=== PATIENT | female | born 1950 | race Caucasian/White ===

== ENCOUNTER → 2017-08-31 20:22 | Outpatient (CLI) | payer MEDICARE, BC | END | disposition home or self-care (01) | LOC: D.MAMMO 08-28 15:45 | DX: Z12.31 Encounter for screening mammogram for malignant neoplasm of breast (principal) ==

== ENCOUNTER 2017-10-30 08:25 | Day surgery (SDC) | payer MEDICARE, BC ==
[2017-10-29 14:16] LABS: BASOPHILS 0.4 % (0-2); EOSINOPHILS 1.6 % (0-7); HEMATOCRIT 36.8 % (36.0-48.0); HEMOGLOBIN 11.8 g/dL (12-16); IMMATURE GRANULOCYTES 0.1 % (0-5); LYMPHOCYTES 45.7 % (15-50); MCH 29.4 pg (26.0-34.0); MCHC 32.1 g/dL (31.0-37.0); MCV 91.8 fL (80.0-100.0); MEAN PLATELET VOLUME 8.5 fL (7.4-10.4); MONOCYTES 7.1 % (2-11); NEUTROPHILS 45.1 % (40-80); PLATELET COUNT 310 10x3/uL (130-400); RBC 4.01 10x6/uL (4.00-5.40); RDW 13.3 % (11.5-14.5); WBC 7.3 10x3/uL (4.8-10.8)
[2017-10-29 14:25] LABS: ANION GAP 10.5 mmol/L (8-16); CALCIUM 10.2 mg/dL (8.5-10.1); CARBON DIOXIDE 27.3 mmol/L (21.0-32.0); POTASSIUM - SERUM 3.8 mmol/L (3.5-5.1)
[~2017-10-30] VITALS: Ht 157.5 cm; Wt 61.2 kg
--- NOTE | ~2017-10-30 | OP ---
PATIENT NAME: XENA BAIRD MEDICAL RECORD: [id number] :46 LOCATION:D.OPS ADMISSION DATE: SURGEON: MIKE REDDY MD DATE OF OPERATION: 10/30/2017 PREOPERATIVE DIAGNOSES: 1. Umbilical hernia. 2. Hypertension. 3. Hypercholesterolemia. 4. Arthritis. POSTOPERATIVE DIAGNOSES: 1. Umbilical hernia. 2. Hypertension. 3. Hypercholesterolemia. 4. Arthritis. PROCEDURE: Umbilical hernia repair with 6.4 cm Proceed mesh. SURGEON: Mike Reddy MD REPORT OF PROCEDURE: The patient's abdomen was prepped and draped in sterile fashion. A semicircular incision was made on the superior aspect of the umbilicus. Electrocautery was used to dissect through the subcutaneous tissues. We elevated the umbilical stalk. The patient had a large hernia defect and as we freed this up, we freed up the surrounding tissue overlying the fascia in all directions. Upon doing this, we noted that there were multiple hernia defects present with small fascial bridges between them. These fascial bridges were opened up leaving one large hernia defect. This measured about 3.5 cm in greatest diameter. We freed up the undersurface of the fascia and inserted a 6.4 cm Proceed mesh and sutured it down on all 4 sides using interrupted 0 Prolenes. We then irrigated out the wound with normal saline and closed the fascia over top of the mesh using a running 0 Vicryl. The umbilicus was tacked down with a single interrupted 3-0 Vicryl. The subcutaneous tissues were reapproximated with interrupted 3-0 Vicryl and the skin was closed with running subcutaneous 5-0 Monocryl. We infused a total of 10 mL of 0.25% Marcaine plain into the surrounding tissues and the wound was dressed appropriately. COMPLICATIONS: None. CONDITION: Stable. ANESTHESIA: General endotracheal and local. BLOOD LOSS: Minimal. 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 10/30/17 [place] [address]
[~2017-10-30 08:25] MED LIST: ALTACE2.5 MG PO; ELAVIL25 MG PO; LEVOTHYROXINE50 MCG PO; LYRICA100 MG PO; NEXIUM20 MG PO; PRAVACHOL80 MG PO; SOMA350 MG PO; ZOLOFT50 MG PO
[2017-10-30 08:52] VITALS: BP 142/77; Ht 157.5 cm; Wt 61.2 kg
[2017-10-30] MEDS ORDERED: HYDROCODONE-APA1 TAB PO (11:41)
== END 2017-10-30 14:00 | disposition home or self-care (01) ==
LOC: D.OPS 08:25 → D.PAN 10:45 → D.OPS 14:00
PROVIDERS: Surgery
DX: K42.9 Umbilical hernia without obstruction or gangrene (principal); I10 Essential (primary) hypertension; E78.00 Pure hypercholesterolemia, unspecified; M19.90 Unspecified osteoarthritis, unspecified site; Z01.812 Encounter for preprocedural laboratory examination

== ENCOUNTER → 2017-12-19 10:52 | Outpatient (CLI) | payer MEDICARE, BC ==
[2017-10-30 08:52] VITALS: BMI 24.7
[~2017-12-19 10:52] MED LIST changes: +HYDROCODONE-APA1 TAB PO
== END | disposition home or self-care (01) ==
LOC: D.CT 10:52
DX: R10.2 Pelvic and perineal pain (principal)

== ENCOUNTER 2019-07-05 17:52 | Emergency (ER) | payer MEDICARE, BC ==
[2017-10-30 08:52] VITALS: Ht 157.5 cm
[2019-07-05] MEDS ORDERED: ULTRAM50 MG PO (20:02)
[2019-07-05] MEDS ORDERED: MEDROL DOSE PACK4 MG PO (20:02)
[2019-07-05 20:16] VITALS: BP 122/81
== END 2019-07-05 20:16 | disposition home or self-care (01) ==
LOC: D.ER 17:52
DX: S33.5XXA Sprain of ligaments of lumbar spine, initial encounter (principal); W19.XXXA Unspecified fall, initial encounter; M62.838 Other muscle spasm; M25.551 Pain in right hip; I10 Essential (primary) hypertension; M54.2 Cervicalgia

== ENCOUNTER 2020-10-21 13:30 | Outpatient (CLI) | payer MEDICARE, BC ==
[~2020-10-21 13:30] MED LIST changes: +MEDROL DOSE PACK4 MG PO; +ULTRAM50 MG PO
== END 2020-10-21 23:59 | disposition home or self-care (01) ==
LOC: D.MAMMO 13:30
PROVIDERS: ATTEND Family Medicine
DX: Z12.31 Encounter for screening mammogram for malignant neoplasm of breast (principal)